=== PATIENT | female | born 1930 | race Caucasian/White ===

== ENCOUNTER 2017-06-24 05:48 | Day surgery (SDC) | payer MEDICARE ==
[2017-06-21 10:43] VITALS: BP 132/66
[2017-06-21 10:58] LABS: BASOPHILS % (AUTO) 1.2 % (0.0-5.0); HEMATOCRIT 37.6 % (36-48); LYMPHOCYTES % (AUTO) 20.4 % (21.0-51.0); MEAN CORPUSCULAR HEMOGLOBIN 33.7 pg (27.0-33.0); MEAN CORPUSCULAR HGB CONC 34.5 g/dL (32.0-36.0); MEAN CORPUSCULAR VOLUME 97.8 fL (79-99); MONOCYTES % (AUTO) 9.9 % (3.0-13.0); NEUTROPHILS % (AUTO) 65.5 % (40.0-77.0); PLATELET COUNT (AUTO) 174 K/uL (130-400); RED BLOOD CELL COUNT(AUTO) 3.84 MIL/uL (4.00-5.50); RED CELL DISTRIBUTION WIDTH 13.7 % (11.0-15.5); WHITE BLOOD COUNT (AUTO) 4.9 K/uL (4.8-10.8)
[2017-06-21 11:03] LABS: APPEARANCE,URINE Clear (CLEAR); BILIRUBIN,URINE Negative (NEGATIVE); COLOR,URINE Yellow (YELLOW); GLUCOSE, URINE (UA) Negative (NEGATIVE); KETONES,URINE Negative (NEGATIVE); LEUKOCYTE ESTERASE ,URINE Moderate (NEGATIVE); NITRATE,URINE Negative (NEGATIVE); OCCULT BLOOD,URINE Negative (NEGATIVE); PROTEIN,URINE Negative (NEGATIVE)
[2017-06-21 11:14] LABS: CREATININE 1.6 mg/dL (0.5-1.5); POTASSIUM 4.1 mmol/L (3.5-5.1)
[2017-06-21 11:28] LABS: BACTERIA,URINE Few /HPF (None Seen); RBC,URINE 0-1 /HPF (0-1); SQUAMOUS EPITHELIAL CELL,UR Rare /LPF (0-2)
[2017-06-21 11:39] LABS: PARTIAL THROMBOPLASTIN TIME 25.9 SEC (26.3-35.5); PROTHROMBIN TIME 10.5 SEC (9.6-11.6)
[2017-06-24] VITALS (10 sets, daily range): BP systolic 100–148; BP diastolic 54–87
[~2017-06-24] VITALS: Ht 160 cm; Wt 84.5 kg
[~2017-06-24 05:48] MED LIST: BRIM5DRO OP; CA C-5 PO; CLOP75TA14 PO; FENO145T PO; FURO40TA5 PO; LEVO25TA54 PO; NEBI5TAB8 PO; PANT40TA25 PO; RANO500T2 PO; SPIR25TA4 PO; TRAM-355 PO; VALS320T15 PO; XALA2.5OS OD
[2017-06-24] MEDS ORDERED: NITR0.4T50 SL (07:07)
[2017-06-24] MEDS: SODIUM CHLORIDE 0.9% 1000ML 1,000 ML IV ONE ×2 (07:08→13:05)
[2017-06-24] MEDS ORDERED: ISOVUE-370 50ML VIAL IV ONE (07:11)
[2017-06-24] MEDS ORDERED: LIDOCAINE HCL 2% 20ML ONE (07:11)
[2017-06-24] MEDS ORDERED: IOPAMIDOL-370 100 ML VIAL IV ONE (07:11)
[2017-06-24] MEDS ORDERED: HEPARIN SODIUM 1000UNIT/ML 10ML VIAL ONE (07:11)
[2017-06-24] MEDS ORDERED: HYDRALAZINE HCL 20 MG/ML VIAL ONE (07:44)
[2017-06-24] MEDS ORDERED: SODIUM CHLORIDE 0.9% 1000ML 1,000 ML IV ONE (08:07)
[2017-06-24] MEDS ORDERED: ONDANSETRON HCL 4 MG/2 ML VIAL ONE (08:25)
[2017-06-24] MEDS ORDERED: ONDANSETRON HCL 4 MG/2 ML VIAL IVP SCH (08:30)
== END 2017-06-24 13:20 | disposition home or self-care (01) ==
LOC: DAH 05:48
PROVIDERS: ATTEND Internal Medicine Cardiovascular Disease
DX: I25.119 Atherosclerotic heart disease of native coronary artery with unspecified angina pectoris (principal); Z95.0 Presence of cardiac pacemaker; E78.4 Other hyperlipidemia; I12.9 Hypertensive chronic kidney disease with stage 1 through stage 4 chronic kidney disease, or unspecified chronic kidney disease; N18.3 Chronic kidney disease, stage 3 (moderate); Z86.73 Personal history of transient ischemic attack (TIA), and cerebral infarction without residual deficits; Z68.31 Body mass index [BMI] 31.0-31.9, adult; Z79.899 Other long term (current) drug therapy; Z88.8 Allergy status to other drugs, medicaments and biological substances; Z98.890 Other specified postprocedural states; Z90.49 Acquired absence of other specified parts of digestive tract; Z90.710 Acquired absence of both cervix and uterus; I63.9 Cerebral infarction, unspecified
CPT/HCPCS: 36415; 71045; 80048; 81001; 85025; 85610; 85730; 93005; 93458; A4606; C1760; C1894; J0360; J1644; J2405; J3490; J7030 ×2; Q9967 ×2

== ENCOUNTER → 2018-05-23 | Outpatient (CLI) | payer MEDICARE ==
[~2018-05-23] MED LIST changes: +NITR0.4T50 SL; -RANO500T2 PO; -SPIR25TA4 PO; +SPIR25TA6 PO; -VALS320T15 PO; +VALS320T16 PO
== END | disposition home or self-care (01) ==
LOC: SHCH 13:02
PROVIDERS: ATTEND Internal Medicine Cardiovascular Disease
DX: I11.9 Hypertensive heart disease without heart failure (principal); Z95.0 Presence of cardiac pacemaker
CPT/HCPCS: 93306

== ENCOUNTER → 2018-12-22 | Outpatient (CLI) | payer MEDICARE | END | disposition home or self-care (01) | LOC: RAH 10:10 | PROVIDERS: ATTEND Physical Medicine & Rehabilitation | DX: M17.12 Unilateral primary osteoarthritis, left knee (principal) | CPT/HCPCS: 73562 ==

== ENCOUNTER → 2019-01-01 | Outpatient (CLI) | payer MEDICARE | END | disposition home or self-care (01) | LOC: RAH 11:00 | PROVIDERS: ATTEND Internal Medicine Cardiovascular Disease | DX: I11.9 Hypertensive heart disease without heart failure (principal); G31.89 Other specified degenerative diseases of nervous system; R90.82 White matter disease, unspecified; Z86.73 Personal history of transient ischemic attack (TIA), and cerebral infarction without residual deficits | CPT/HCPCS: 70450; 93306 ==

== ENCOUNTER 2019-01-09 07:13 | Day surgery (SDC) | payer MEDICARE ==
[2019-01-07 08:23] VITALS: BP 127/62
[2019-01-07 08:26] LABS: BASOPHILS % (AUTO) 1.3 % (0.0-5.0); EOSINOPHILS % (AUTO) 3.3 % (0.0-8.0); HEMATOCRIT 40.9 % (36-48); LYMPHOCYTES % (AUTO) 20.4 % (21.0-51.0); MEAN CORPUSCULAR HGB CONC 33.8 g/dL (32.0-36.0); MEAN CORPUSCULAR VOLUME 94.8 fL (79-99); MONOCYTES % (AUTO) 9.9 % (3.0-13.0); NEUTROPHILS % (AUTO) 65.1 % (40.0-77.0); NUCLEATED RED BLOOD CELLS 0.1 % (0.0-0.19); PLATELET COUNT (AUTO) 139 K/uL (130-400); RED BLOOD CELL COUNT(AUTO) 4.32 MIL/uL (4.00-5.50); RED CELL DISTRIBUTION WIDTH 14.4 % (11.0-15.5); WHITE BLOOD COUNT (AUTO) 5.2 K/uL (4.8-10.8)
[2019-01-07 08:38] LABS: CREATININE 1.1 mg/dL (0.5-1.5); POTASSIUM 3.7 mmol/L (3.5-5.1)
[2019-01-07 08:42] LABS: INR 0.96 (0.85-1.15); PARTIAL THROMBOPLASTIN TIME 27.1 SEC (26.3-35.5); PROTHROMBIN TIME 10.1 SEC (9.6-11.6)
--- NOTE | 2019-01-07 09:30 | NUR ---
PPM SPOKE WITH MELISSA DAS AWARE OF PPM ON 01-09-19.
--- NOTE | 2019-01-08 18:24 | NUR ---
LABS MIGUELITO RAAGON AWARE OF ABNORMAL LABS BUN 23, NA 147, OK FOR PROCEDURE.
[2019-01-09] VITALS (8 sets, daily range): BP systolic 144–162; BP diastolic 75–90
[~2019-01-09] VITALS: Ht 162.6 cm; Wt 86.6 kg
[~2019-01-09 07:13] MED LIST changes: +AMLO2.5T4 PO; +CEFAZOLIN SODIUM 1 GM VIAL IVP SCH; -CLOP75TA14 PO; +DIPH25TA51 PO; -LEVO25TA54 PO; +LOSA50TA64 PO; +MONT10TA24 PO; +NAPR220C15 PO; -NITR0.4T50 SL; +SODIUM CHLORIDE 0.9% 1000ML 1,000 ML IV SCH; -SPIR25TA6 PO; -VALS320T16 PO
--- NOTE | 2019-01-09 07:32 | NUR ---
ARRIVED PATIENT ARRIVED FROM HOME, ACCOMPANIED BY DAUGHTER AND SISTER. PATIENT AAOX3, RESPIRATIONS UNLABORED, DENIES ANY PAIN. PROCEDURE CONFIRMED AND VERIFIED WITH PATIENT. PROCEDURE EXPLAINED TO PATIENT AND PATIENT VERBALIZED UNDERSTANDING. ALL QUESTIONS/CONCERNS ADDRESSED. HOSPITAL ROUTINE EXPLAINED TO PATIENT AND PT VERBALIZED UNDERSTANDING.
[2019-01-09] MEDS ORDERED: TRAM50TA4 PO (08:07)
--- NOTE | 2019-01-09 11:45 | NUR ---
TRANSFERRED PATIENT TAKEN TO [employer]PER[employer] HELPER VIA BED BY AMELIA LOW. FAMILY INSTRUCTED TO WAIT FOR PATIENT IN ROOM IN ORDER TO SPEAK WITH DR BULLARD FOLLOWING PROCEDURE.
[2019-01-09] MEDS ORDERED: CEFAZOLIN SODIUM 1 GM VIAL ONE (11:48)
[2019-01-09] MEDS ORDERED: LIDOCAINE HCL 1% MDV 50ML VIAL ONE (11:48)
[2019-01-09] MEDS ORDERED: BUPIVACAINE/PF 0.25% 30ML VIAL IJ ONE (11:48)
[2019-01-09] MEDS ORDERED: MEPERIDINE-PF 25 MG/ML SYG ONE ×2 (11:59→12:23)
[2019-01-09] MEDS ORDERED: MIDAZOLAM HCL 1 MG/ML 2ML VIAL ONE ×2 (11:59→12:23)
--- NOTE | 2019-01-09 13:25 | NUR ---
RETURNED PATIENT BROUGHT BACK FROM [facility] VIA BED BY AMELIA HILL. PATIENT AAO X3, RESPIRATIONS UNLABORED, VITAL SIGNS STABLE, DENIES ANY PAIN. FAMILY MEMBERS AT BEDSIDE. DRESSING TO LEFT UPPER CHEST WALL IS DRY AND INTACT. NO DRAINAGE,BLEEDING, OR HEMATOMA NOTED.
--- NOTE | 2019-01-09 15:20 | NUR ---
HANDOFF COMMUNICATION REPORT GIVEN TO JEVON TEMPLETON RN USING SBAR. ALL QUESTIONS/CONCERNS REGARDING PATIENT CARE ADDRESSED.
--- NOTE | 2019-01-09 15:20 | NUR ---
SITE CHECK DRESSING TO LEFT UPPER CHEST WALL IS DRY AND INTACT. NO DRAINAGE, NO SWELLING, NO HEMATOMA OR BLEEDING NOTED.
== END 2019-01-09 16:13 | disposition home or self-care (01) ==
LOC: DAH 07:13
PROVIDERS: ATTEND Internal Medicine Cardiovascular Disease
DX: Z45.010 Encounter for checking and testing of cardiac pacemaker pulse generator [battery] (principal); R00.1 Bradycardia, unspecified; I45.9 Conduction disorder, unspecified; I67.9 Cerebrovascular disease, unspecified; I12.9 Hypertensive chronic kidney disease with stage 1 through stage 4 chronic kidney disease, or unspecified chronic kidney disease; N18.3 Chronic kidney disease, stage 3 (moderate); Z86.73 Personal history of transient ischemic attack (TIA), and cerebral infarction without residual deficits; I25.10 Atherosclerotic heart disease of native coronary artery without angina pectoris; Z88.8 Allergy status to other drugs, medicaments and biological substances; Z88.6 Allergy status to analgesic agent; Z79.01 Long term (current) use of anticoagulants
CPT/HCPCS: 33228; 36415; 80048; 85025; 85610; 85730; 93005; A4606; C1785; J0690; J2175 ×2; J2250 ×2; J3490 ×2; J7030; 99156; 99157

== ENCOUNTER → 2019-06-02 | Outpatient (CLI) | payer MEDICARE ==
[~2019-06-02] MED LIST changes: -CEFAZOLIN SODIUM 1 GM VIAL IVP SCH; -SODIUM CHLORIDE 0.9% 1000ML 1,000 ML IV SCH; -TRAM-355 PO; +TRAM50TA4 PO
== END | disposition home or self-care (01) ==
LOC: RAH 08:45
PROVIDERS: ATTEND Family Medicine
DX: N28.1 Cyst of kidney, acquired (principal); K76.89 Other specified diseases of liver; Z90.49 Acquired absence of other specified parts of digestive tract
CPT/HCPCS: 76700; 76856

== ENCOUNTER → 2019-06-24 | Outpatient (CLI) | payer MEDICARE | END | disposition home or self-care (01) | LOC: OIH 16:12 | PROVIDERS: ATTEND Internal Medicine Gastroenterology | DX: M47.814 Spondylosis without myelopathy or radiculopathy, thoracic region (principal); I70.0 Atherosclerosis of aorta; R63.4 Abnormal weight loss; Z95.0 Presence of cardiac pacemaker | CPT/HCPCS: 71046 ==

== ENCOUNTER 2019-07-06 06:59 | Day surgery (SDC) | payer MEDICARE ==
[~2019-07-06] VITALS: Ht 166.4 cm; Wt 80.3 kg
[2019-07-06] VITALS (8 sets, daily range): BP systolic 141–190; BP diastolic 63–99
[~2019-07-06 06:59] MED LIST changes: +CLOP75TA32 PO; -DIPH25TA51 PO; +FURO-152 PO; -MONT10TA24 PO; -NAPR220C15 PO; +SODIUM CHLORIDE 0.9% 1000ML 1,000 ML IV ONE; -XALA2.5OS OD
[2019-07-06] MEDS ORDERED: GLYCOPYRROLATE 0.2 MG/ML 5 ML VIAL ONE (09:07)
[2019-07-06] MEDS ORDERED: LIDOCAINE HCL 1% 20 ML VIAL ONE (09:07)
[2019-07-06] MEDS ORDERED: MONT10TA26 PO (09:16)
== END 2019-07-06 10:40 | disposition home or self-care (01) ==
LOC: ENDO 06:59 → DAH 06:59 → ENDO 10:40
PROVIDERS: ATTEND Internal Medicine Gastroenterology
DX: R19.7 Diarrhea, unspecified (principal); K29.50 Unspecified chronic gastritis without bleeding; K31.89 Other diseases of stomach and duodenum; K57.30 Diverticulosis of large intestine without perforation or abscess without bleeding; I11.0 Hypertensive heart disease with heart failure; I50.9 Heart failure, unspecified; I25.10 Atherosclerotic heart disease of native coronary artery without angina pectoris; M81.0 Age-related osteoporosis without current pathological fracture; M19.90 Unspecified osteoarthritis, unspecified site; I25.2 Old myocardial infarction; M47.899 Other spondylosis, site unspecified; Z88.8 Allergy status to other drugs, medicaments and biological substances; Z88.1 Allergy status to other antibiotic agents; Z79.899 Other long term (current) drug therapy; Z86.73 Personal history of transient ischemic attack (TIA), and cerebral infarction without residual deficits; Z90.49 Acquired absence of other specified parts of digestive tract; Z90.710 Acquired absence of both cervix and uterus; Z98.890 Other specified postprocedural states; Z98.49 Cataract extraction status, unspecified eye; Z72.89 Other problems related to lifestyle; Z82.49 Family history of ischemic heart disease and other diseases of the circulatory system; Z82.5 Family history of asthma and other chronic lower respiratory diseases
CPT/HCPCS: 43239; 45380; 88305; 93005; A4215; A4221; A4222; A4223; A4606; A4620; A4663; J3490; J7030

== ENCOUNTER → 2020-03-01 | Outpatient (CLI) | payer MEDICARE ==
[~2020-03-01] MED LIST changes: +MONT10TA26 PO; -PANT40TA25 PO; +PANT40TA54 PO; -SODIUM CHLORIDE 0.9% 1000ML 1,000 ML IV ONE
== END | disposition home or self-care (01) ==
LOC: RAH 11:32
PROVIDERS: ATTEND Physical Medicine & Rehabilitation
DX: M47.26 Other spondylosis with radiculopathy, lumbar region (principal); M25.562 Pain in left knee; M48.061 Spinal stenosis, lumbar region without neurogenic claudication
CPT/HCPCS: 72110; 73560

== ENCOUNTER → 2020-03-08 | Outpatient (CLI) | payer MEDICARE | END | disposition home or self-care (01) | LOC: RAH 13:08 | PROVIDERS: ATTEND Physical Medicine & Rehabilitation | DX: M43.16 Spondylolisthesis, lumbar region (principal); M47.816 Spondylosis without myelopathy or radiculopathy, lumbar region | CPT/HCPCS: 72131 ==

== ENCOUNTER 2020-08-22 14:30 | Inpatient (IN) | payer MEDICARE ==
[~2020-08-22] VITALS: Ht 166.4 cm; Wt 77.1 kg
[2020-08-22 10:35] LABS: BASOPHILS % (AUTO) 1.5 % (0.0-5.0); EOSINOPHILS % (AUTO) 2.6 % (0.0-8.0); HEMATOCRIT 39.1 % (36-48); LYMPHOCYTES % (AUTO) 23.8 % (21.0-51.0); MEAN CORPUSCULAR HEMOGLOBIN 31.5 pg (27.0-33.0); MEAN CORPUSCULAR VOLUME 95.4 fL (79-99); MONOCYTES % (AUTO) 9.6 % (3.0-13.0); NEUTROPHILS % (AUTO) 61.8 % (40.0-77.0); PLATELET COUNT (AUTO) 157 K/uL (130-400); WHITE BLOOD COUNT (AUTO) 4.6 K/uL (4.8-10.8)
[2020-08-22 10:40] LABS: APPEARANCE,URINE Clear (CLEAR); BILIRUBIN,URINE Negative (NEGATIVE); COLOR,URINE Yellow (YELLOW); GLUCOSE, URINE (UA) Negative (NEGATIVE); KETONES,URINE Negative (NEGATIVE); LEUKOCYTE ESTERASE ,URINE Small (NEGATIVE); NITRATE,URINE Negative (NEGATIVE); OCCULT BLOOD,URINE Negative (NEGATIVE); PROTEIN,URINE Negative (NEGATIVE); UROBILINOGEN,URINE 0.2 mg/dL (0.2-1.0)
[2020-08-22 10:47] LABS: CREATININE 1.3 mg/dL (0.5-1.5); POTASSIUM 3.7 mmol/L (3.5-5.1)
[2020-08-22 10:50] LABS: INR 1.04 (0.85-1.15); PROTHROMBIN TIME 11.3 SEC (9.6-11.6)
[2020-08-22 11:06] LABS: BACTERIA,URINE Moderate /HPF (None Seen); RBC,URINE 0-1 /HPF (0-1); SQUAMOUS EPITHELIAL CELL,UR Rare /HPF (0-2)
[~2020-08-22 14:30] MED LIST changes: -AMLO2.5T4 PO; -CA C-5 PO; -MONT10TA26 PO
[2020-08-23 10:04] VITALS: BP 120/68
[2020-08-23] MEDS ORDERED: GENTAMICIN SULFATE 240 MG in 0.9%NACL 100ML 100 ML IV SCH (10:15)
[2020-08-23] MEDS ORDERED: LATA7.5D OU (11:15)
[2020-08-23] MEDS ORDERED: CALC-1125 PO (11:15)
[2020-08-23] MEDS ORDERED: SPIR25TA6 PO (11:15)
[2020-08-24] VITALS (23 sets, daily range): BP systolic 124–165; BP diastolic 65–91
[2020-08-24] MEDS: GENTAMICIN SULFATE 240 MG in 0.9%NACL 100ML 100 ML IV SCH ×2 (06:30→12:10)
[2020-08-24] MEDS ORDERED: 0.9%NACL 1000ML 1,000 ML IV ONE (07:34)
[2020-08-24] MEDS: CEFAZOLIN SODIUM 1 GM VIAL IVP ONE ×2 (07:39→12:00)
[2020-08-24] MEDS ORDERED: CEFAZOLIN SODIUM 1 GM VIAL ONE (08:02)
[2020-08-24] MEDS ORDERED: TRANEXAMIC ACID 1000MG/10ML ONE (08:02)
[2020-08-24] MEDS ORDERED: ROCURONIUM 10MG/1ML SYR 10 MG/ML ML ONE (08:38)
[2020-08-24] MEDS ORDERED: SUCCINYLCHOLINE CHLORIDE 20 MG/ML 10 ML VIAL ONE (08:38)
[2020-08-24] MEDS ORDERED: PROPOFOL 10 MG/ML 20ML VIAL IV ONE (08:38)
[2020-08-24] MEDS ORDERED: LIDOCAINE PF 100MG/5ML (2%) SYRINGE 5ML ONE (08:38)
[2020-08-24] MEDS ORDERED: KETAMINE 50MG/ML SYRINGE 50 MG/ML DISP.SYRIN IV ONE (08:38)
[2020-08-24] MEDS ORDERED: ROPIVACAINE 0.5% 5MG/ML 30ML IJ ONE (08:40)
[2020-08-24] MEDS ORDERED: ACETAMINOPHEN 500 MG TABLET ONE (08:40)
[2020-08-24] MEDS ORDERED: CELECOXIB 200 MG CAP ONE (08:41)
[2020-08-24] MEDS ORDERED: KETOROLAC 15MG/ML VIAL (15MG/ML) ONE (08:41)
[2020-08-24] MEDS ORDERED: FENTANYL CITRATE PF 50 MCG/1 ML 2ML VIAL ONE (12:29)
[2020-08-24] MEDS ORDERED: LABETALOL 20MG VIAL IV ONE (12:39)
[2020-08-24] MEDS ORDERED: NEOSTIGMINE 5MG/5ML SYR IV ONE (13:35)
[2020-08-24] MEDS ORDERED: ONDANSETRON 4MG INJ ONE (13:35)
[2020-08-24] MEDS ORDERED: GLYCOPYRROLATE 1 MG/5 ML SYRINGE ONE (13:35)
[2020-08-24] MEDS: 0.9%NACL 1000ML 1,000 ML IV SCH ×2 (13:45→21:33)
[2020-08-24] MEDS ORDERED: ONDANSETRON 4MG INJ IVP PRN (13:45)
[2020-08-24] MEDS ORDERED: OXYCODONE HCL 5 MG TAB PO PRN (13:45)
[2020-08-24] MEDS ORDERED: TRAMADOL HCL 50 MG TABLET PO PRN (13:45)
[2020-08-24] MEDS ORDERED: POTASSIUM CHLORIDE 10% ELIXIR 20 MEQ/15 ML UDCUP PO PRN (13:45)
[2020-08-24] MEDS ORDERED: TEMAZEPAM 15 MG CAPSULE PO PRN (13:45)
[2020-08-24] MEDS ORDERED: CALCIUM CARB 500MG PO PRN (13:45)
[2020-08-24] MEDS ORDERED: LIDOCAINE HCL-MPF 1% 2ML VIAL IV PRN (13:45)
[2020-08-24] MEDS: ACETAMINOPHEN 500 MG TABLET PO SCH ×2 (13:45→21:32)
[2020-08-24] MEDS ORDERED: KETOROLAC 15MG/ML VIAL (15MG/ML) IV PRN (13:45)
[2020-08-24] MEDS ORDERED: KCL 20 MEQ ERTAB PO PRN (13:45)
[2020-08-24] MEDS ORDERED: DiphenhydrAMINE HCL 50 MG/ML VIAL IVP PRN (13:45)
[2020-08-24] MEDS ORDERED: POTASSIUM CHLORIDE 20MEQ/100ML 100 ML IV PRN (13:45)
[2020-08-24] MEDS: CEFAZOLIN SODIUM 1 GM VIAL IVP SCH (18:06)
[2020-08-24] MEDS ORDERED: FUROSEMIDE 20 MG TABLET PO SCH (19:27)
[2020-08-24] MEDS: CELECOXIB 200 MG CAP PO SCH (21:32)
[2020-08-24] MEDS: NITROFURANTOIN MONOHYD/M-CRYST 100 MG CAPSULE PO SCH (21:32)
[2020-08-24] MEDS: FAMOTIDINE 20MG TAB PO SCH (21:32)
[2020-08-24] MEDS: PREGABALIN 25 MG CAP PO SCH (21:32)
[2020-08-24] MEDS: APIXABAN 2.5 MG TABLET PO SCH (21:32)
[2020-08-25] VITALS: BP 118/65
[2020-08-25] MEDS: CEFAZOLIN SODIUM 1 GM VIAL IVP SCH (03:13)
[2020-08-25] MEDS: OXYCODONE HCL 5 MG TAB PO PRN ×2 (03:13→10:30)
[2020-08-25 04:00] VITALS: BP 113/71
[2020-08-25 05:11] LABS: HEMATOCRIT 27.2 % (36-48); MEAN CORPUSCULAR HEMOGLOBIN 31.2 pg (27.0-33.0); MEAN CORPUSCULAR HGB CONC 32.7 g/dL (32.0-36.0); MEAN CORPUSCULAR VOLUME 95.4 fL (79-99); RED BLOOD CELL COUNT(AUTO) 2.85 MIL/uL (4.00-5.50); RED CELL DISTRIBUTION WIDTH 14.4 % (11.0-15.5); WHITE BLOOD COUNT (AUTO) 9.7 K/uL (4.8-10.8)
[2020-08-25 05:20] LABS: CREATININE 2.1 mg/dL (0.5-1.5); POTASSIUM 4.4 mmol/L (3.5-5.1)
[2020-08-25] MEDS: ACETAMINOPHEN 500 MG TABLET PO SCH ×3 (05:37→20:53)
[2020-08-25 08:07] VITALS: BP 119/55
[2020-08-25] MEDS: NEBIVOLOL HCL 5 MG PO SCH (09:00)
[2020-08-25] MEDS: BRIMONIDINE TARTRATE 0.2% 5 ML BOTTLE OP SCH ×2 (09:00→20:52)
[2020-08-25] MEDS ORDERED: CLOPIDOGREL 75MG TAB PO SCH (09:00)
[2020-08-25] MEDS: PANTOPRAZOLE 40 MG TAB DR PO SCH (09:00)
[2020-08-25] MEDS: TIMOLOL MALEATE 0.5% 5 ML BOTTLE OP SCH ×2 (09:00→20:52)
[2020-08-25] MEDS: FUROSEMIDE 40 MG TABLET PO SCH (09:01)
[2020-08-25] MEDS: LOSARTAN 100 MG TABLET PO SCH (09:01)
[2020-08-25] MEDS: FENOFIBRATE NANOCRYSTALLIZED 145 MG TAB PO SCH (09:01)
[2020-08-25] MEDS: PREGABALIN 25 MG CAP PO SCH ×2 (09:01→20:52)
[2020-08-25] MEDS: SPIRONOLACTONE 25 MG TAB PO SCH (09:02)
[2020-08-25] MEDS: APIXABAN 2.5 MG TABLET PO SCH ×2 (09:02→20:52)
[2020-08-25] MEDS: CALCIUM CARB 500MG PO SCH (09:02)
[2020-08-25] MEDS: CELECOXIB 200 MG CAP PO SCH ×2 (09:02→20:52)
[2020-08-25] MEDS: NITROFURANTOIN MONOHYD/M-CRYST 100 MG CAPSULE PO SCH ×2 (09:03→20:52)
[2020-08-25] MEDS: FAMOTIDINE 20MG TAB PO SCH ×2 (09:04→20:52)
[2020-08-25] MEDS: POLYETHYLENE GLYCOL 3350 17 GM POWD.PACK PO SCH (09:04)
[2020-08-25] MEDS: FERROUS FUMARATE 324 MG TABLET PO PRN (09:14)
[2020-08-25] MEDS: 0.9%NACL 1000ML 1,000 ML IV SCH (09:45)
[2020-08-25 11:57] VITALS: BP 96/55
[2020-08-25 16:00] VITALS: BP 140/73
[2020-08-25 20:00] VITALS: BP 118/61
[2020-08-25] MEDS: LATANOPROST 2.5 ML DROPS OU SCH (20:59)
[2020-08-26] VITALS (9 sets, daily range): BP systolic 76–146; BP diastolic 41–94
[2020-08-26] MEDS: ACETAMINOPHEN 500 MG TABLET PO SCH ×3 (05:47→20:15)
[2020-08-26] MEDS: PREGABALIN 25 MG CAP PO SCH ×2 (08:28→20:12)
[2020-08-26] MEDS: POLYETHYLENE GLYCOL 3350 17 GM POWD.PACK PO SCH (08:28)
[2020-08-26] MEDS: SPIRONOLACTONE 25 MG TAB PO SCH (08:28)
[2020-08-26] MEDS: CELECOXIB 200 MG CAP PO SCH ×2 (08:28→20:12)
[2020-08-26] MEDS: FUROSEMIDE 40 MG TABLET PO SCH (08:29)
[2020-08-26] MEDS: PANTOPRAZOLE 40 MG TAB DR PO SCH (08:29)
[2020-08-26] MEDS: LOSARTAN 100 MG TABLET PO SCH (08:29)
[2020-08-26] MEDS: CALCIUM CARB 500MG PO SCH (08:29)
[2020-08-26] MEDS: NITROFURANTOIN MONOHYD/M-CRYST 100 MG CAPSULE PO SCH ×2 (08:30→20:12)
[2020-08-26] MEDS: FAMOTIDINE 20MG TAB PO SCH ×2 (08:30→20:12)
[2020-08-26] MEDS: FENOFIBRATE NANOCRYSTALLIZED 145 MG TAB PO SCH (08:30)
[2020-08-26] MEDS: APIXABAN 2.5 MG TABLET PO SCH ×2 (08:31→20:12)
[2020-08-26] MEDS: OXYCODONE HCL 5 MG TAB PO PRN (08:32)
[2020-08-26] MEDS: TIMOLOL MALEATE 0.5% 5 ML BOTTLE OP SCH ×2 (09:00→20:13)
[2020-08-26] MEDS: NEBIVOLOL HCL 5 MG PO SCH (09:00)
[2020-08-26] MEDS: BRIMONIDINE TARTRATE 0.2% 5 ML BOTTLE OP SCH ×2 (09:00→20:13)
[2020-08-26 16:03] LABS: HEMATOCRIT 22.8 % (36-48)
[2020-08-26 16:31] LABS: CREATININE 2.3 mg/dL (0.5-1.5)
[2020-08-26] MEDS: LATANOPROST 2.5 ML DROPS OU SCH (20:13)
[2020-08-27 04:00] VITALS: BP 139/71
[2020-08-27] MEDS: ACETAMINOPHEN 500 MG TABLET PO SCH ×2 (05:15→12:37)
[2020-08-27 06:48] LABS: BASOPHILS % (AUTO) 0.5 % (0.0-5.0); EOSINOPHILS % (AUTO) 3.2 % (0.0-8.0); HEMATOCRIT 24.5 % (36-48); LYMPHOCYTES % (AUTO) 16.8 % (21.0-51.0); MEAN CORPUSCULAR HEMOGLOBIN 31.8 pg (27.0-33.0); MEAN CORPUSCULAR HGB CONC 33.9 g/dL (32.0-36.0); MEAN CORPUSCULAR VOLUME 93.9 fL (79-99); NEUTROPHILS % (AUTO) 68.1 % (40.0-77.0); PLATELET COUNT (AUTO) 95 K/uL (130-400); RED BLOOD CELL COUNT(AUTO) 2.61 MIL/uL (4.00-5.50); RED CELL DISTRIBUTION WIDTH 14.5 % (11.0-15.5); WHITE BLOOD COUNT (AUTO) 6.3 K/uL (4.8-10.8)
[2020-08-27 06:59] LABS: CREATININE 2.1 mg/dL (0.5-1.5)
[2020-08-27 08:04] VITALS: BP 176/81
[2020-08-27] MEDS: NEBIVOLOL HCL 5 MG PO SCH (09:00)
[2020-08-27] MEDS: TIMOLOL MALEATE 0.5% 5 ML BOTTLE OP SCH (09:00)
[2020-08-27] MEDS: BRIMONIDINE TARTRATE 0.2% 5 ML BOTTLE OP SCH (09:00)
[2020-08-27] MEDS: POLYETHYLENE GLYCOL 3350 17 GM POWD.PACK PO SCH (09:00)
[2020-08-27] MEDS: PANTOPRAZOLE 40 MG TAB DR PO SCH (10:00)
[2020-08-27] MEDS: FERROUS FUMARATE 324 MG TABLET PO PRN (10:00)
[2020-08-27] MEDS: PREGABALIN 25 MG CAP PO SCH (10:00)
[2020-08-27] MEDS: NITROFURANTOIN MONOHYD/M-CRYST 100 MG CAPSULE PO SCH ×2 (10:00→18:46)
[2020-08-27] MEDS: FUROSEMIDE 40 MG TABLET PO SCH (10:01)
[2020-08-27] MEDS: CALCIUM CARB 500MG PO SCH (10:01)
[2020-08-27] MEDS: FAMOTIDINE 20MG TAB PO SCH (10:01)
[2020-08-27] MEDS: FENOFIBRATE NANOCRYSTALLIZED 145 MG TAB PO SCH (10:01)
[2020-08-27] MEDS: CELECOXIB 200 MG CAP PO SCH (10:01)
[2020-08-27] MEDS: APIXABAN 2.5 MG TABLET PO SCH ×2 (10:02→18:47)
[2020-08-27] MEDS: LOSARTAN 100 MG TABLET PO SCH (10:02)
[2020-08-27] MEDS: SPIRONOLACTONE 25 MG TAB PO SCH (10:02)
[2020-08-27 11:13] VITALS: BP 150/53
[2020-08-27] MEDS ORDERED: BISACODYL 10 MG SUPP.RECT RC PRN (13:45)
[2020-08-27 16:05] VITALS: BP 135/68
[2020-08-27] MEDS ORDERED: TRAM50TA4 PO (17:53)
[2020-08-27] MEDS ORDERED: NITR100C4 PO (17:53)
[2020-08-27] MEDS ORDERED: FERR324T10 PO (17:56)
[2020-10-02] MEDS ORDERED: NEBI5TAB8 PO (14:02)
== END 2020-08-27 18:50 | disposition home health service (06) | DRG 470 ==
LOC: DAHIP 08-24 06:30 → OBSVTOIN 08-24 06:30 → 3AH 08-24 14:02 → EDSTATUS 08-24 14:30
PROVIDERS: ADMIT Orthopaedic Surgery; ATTEND Orthopaedic Surgery
PROC: 0SRD0J9 Replacement of Left Knee Joint with Synthetic Substitute, Cemented, Open Approach (ICD-10-PCS; principal; 2020-08-24 11:35)
PROC: 30233N1 Transfusion of Nonautologous Red Blood Cells into Peripheral Vein, Percutaneous Approach (ICD-10-PCS; 2020-08-26)
DX: M17.12 Unilateral primary osteoarthritis, left knee (principal); N39.0 Urinary tract infection, site not specified; D62 Acute posthemorrhagic anemia; N18.9 Chronic kidney disease, unspecified; I12.9 Hypertensive chronic kidney disease with stage 1 through stage 4 chronic kidney disease, or unspecified chronic kidney disease; I25.10 Atherosclerotic heart disease of native coronary artery without angina pectoris; E78.5 Hyperlipidemia, unspecified; G89.29 Other chronic pain; Z20.822 Contact with and (suspected) exposure to COVID-19; B96.20 Unspecified Escherichia coli [E. coli] as the cause of diseases classified elsewhere; Z95.0 Presence of cardiac pacemaker; Z90.710 Acquired absence of both cervix and uterus; Z86.73 Personal history of transient ischemic attack (TIA), and cerebral infarction without residual deficits; Z82.49 Family history of ischemic heart disease and other diseases of the circulatory system; Z80.9 Family history of malignant neoplasm, unspecified
CPT/HCPCS: 36415; 36430; 80048; 81001; 85014; 85018; 85025; 85027; 85610; 86850; 86900; 86901; 86923; 87077; 87088; 87186; 87641; 88305; 88311; 97039; G0378; J0330; J0690; J1580; J1885; J2001; J2405; J2704; J2710; J2795; J3010; J3490; J7030; J7120; P9016; U0003

== ENCOUNTER 2020-10-18 10:24 | Emergency (ER) | payer MEDICARE ==
[~2020-10-18 10:24] MED LIST changes: +CALC-1125 PO; -CLOP75TA32 PO; +FERR324T10 PO; +LATA7.5D OU; +SPIR25TA6 PO
[2020-10-18 11:20] LABS: EOSINOPHILS % (AUTO) 2.3 % (0.0-8.0); HEMATOCRIT 31.8 % (36-48); LYMPHOCYTES % (AUTO) 18.6 % (21.0-51.0); MEAN CORPUSCULAR HEMOGLOBIN 31.4 pg (27.0-33.0); MEAN CORPUSCULAR HGB CONC 32.1 g/dL (32.0-36.0); MEAN CORPUSCULAR VOLUME 97.8 fL (79-99); NEUTROPHILS % (AUTO) 68.5 % (40.0-77.0); PLATELET COUNT (AUTO) 188 K/uL (130-400); RED BLOOD CELL COUNT(AUTO) 3.25 MIL/uL (4.00-5.50); RED CELL DISTRIBUTION WIDTH 15.3 % (11.0-15.5); WHITE BLOOD COUNT (AUTO) 4.8 K/uL (4.8-10.8)
[2020-10-18 11:31] LABS: ALBUMIN 3.2 g/dL (3.5-5.0); BILIRUBIN,TOTAL 0.5 mg/dL (0.2-1.0); CREATININE 1.2 mg/dL (0.5-1.5); POTASSIUM 4.2 mmol/L (3.5-5.1); TOTAL PROTEIN, SERUM 6.6 g/dL (6.0-8.3)
[2020-10-18 11:40] LABS: PROTHROMBIN TIME 10.9 SEC (9.6-11.6)
[2020-10-18 11:41] LABS: PARTIAL THROMBOPLASTIN TIME 25.6 SEC (26.3-35.5)
[2020-10-18] MEDS ORDERED: L.E.T. GEL 4%/0.5%/0.18% 3ML 3 ML/SYR SYG TP ONE (13:46)
[2020-10-18 14:46] LABS: APPEARANCE,URINE Clear (CLEAR); BILIRUBIN,URINE Negative (NEGATIVE); COLOR,URINE Yellow (YELLOW); GLUCOSE, URINE (UA) Negative (NEGATIVE); KETONES,URINE Negative (NEGATIVE); LEUKOCYTE ESTERASE ,URINE Negative (NEGATIVE); NITRATE,URINE Negative (NEGATIVE); OCCULT BLOOD,URINE Negative (NEGATIVE); PH,URINE 5.5 (5.0-8.0); PROTEIN,URINE Negative (NEGATIVE); UROBILINOGEN,URINE 0.2 mg/dL (0.2-1.0)
== END 2020-10-18 15:23 | disposition home or self-care (01) ==
LOC: EDH 10:24
DX: S01.01XA Laceration without foreign body of scalp, initial encounter (principal); I10 Essential (primary) hypertension; Z86.73 Personal history of transient ischemic attack (TIA), and cerebral infarction without residual deficits; Z88.1 Allergy status to other antibiotic agents; Z88.6 Allergy status to analgesic agent; Z88.8 Allergy status to other drugs, medicaments and biological substances; W18.39XA Other fall on same level, initial encounter; Y93.01 Activity, walking, marching and hiking; Y92.89 Other specified places as the place of occurrence of the external cause; Y99.8 Other external cause status
CPT/HCPCS: 12001; 36415; 70450; 72125; 80053; 81003; 85025; 85610; 85730; 93005